=== PATIENT | born 1935 | race Caucasian/White ===

== ENCOUNTER 2021-08-19 09:32 | Day surgery (SDC) | payer MEDICARE, BC ==
[2021-08-19] MEDS ORDERED: Dexamethasone 4 MG/ML SDV IV ONE (09:33)
[2021-08-19] MEDS ORDERED: Midazolam 1 MG/ML 2 ML SDV IV ONE (09:33)
[2021-08-19] MEDS ORDERED: Sodium Chloride 0.9% 10 ML Syringe IV ONE (09:33)
[2021-08-19] MEDS ORDERED: Ondansetron 4 MG/2 ML SDV IVPUSH PRN (09:45)
[2021-08-19] MEDS ORDERED: Acetaminophen 325 MG Tab PO PRN (09:45)
[2021-08-19] MEDS ORDERED: Tropicamide 1% Ophth Soln 15 ML Bottle EYELF ONE (09:45)
[2021-08-19] MEDS ORDERED: Cataract Ophth Solution EYELF ONE (09:45)
[2021-08-19] MEDS ORDERED: Acetaminophen/Codeine 300-30 MG Tab PO PRN (09:45)
[2021-08-19] MEDS ORDERED: Timolol Maleate 0.5% Ophth Soln 5 ML Bottle EYELF ONE (09:45)
[2021-08-19] MEDS ORDERED: Phenylephrine 10% Ophth Soln 5 ML Bot EYELF ONE (09:45)
[2021-08-19] MEDS ORDERED: Proparacaine 0.5% Ophth Soln 15 ML Bottle EYELF ONE (09:45)
[2021-08-19] MEDS ORDERED: Tobramycin 0.3% Ophth Drops 5 ML Bottle EYELF SCH (09:45)
[2021-08-19] MEDS ORDERED: Moxifloxacin 0.5% Ophth Soln 3 ML Bottle EYELF ONE (09:45)
[2021-08-19] MEDS ORDERED: Povidone-Iodine 5% Sterile Ophth Soln 30 ML Bottle EYELF ONE ×2 (09:45→10:49)
[2021-08-19] MEDS ORDERED: Sodium Chloride 0.9% 10 ML Syringe FLUSH PRN (09:45)
[2021-08-19] MEDS ORDERED: Tetracaine HCl/PF 0.5% 4 ML Bottle EYELF ONE (10:47)
[2021-08-19] MEDS ORDERED: Apraclonidine 0.5% Ophth Soln 5 ML Bot EYELF ONE (10:50)
[2021-08-19] MEDS ORDERED: Diclofenac Sodium 0.1% Ophth Soln 5 ML Bottle EYELF ONE (10:51)
[2021-08-19] MEDS ORDERED: Dexamethasone/Neomycin/Polymyxin B Ophth Oint 3.5 GM Tube EYELF ONE (10:52)
[2021-08-19] MEDS ORDERED: Balanced Salt Solution Ophth Irrig 500 ML Bottle IOCULAR ONE (10:53)
[2021-08-19] MEDS ORDERED: Lidocaine 1% 30 ML SDV ONE (10:53)
[2021-08-19] MEDS ORDERED: Vancomycin 500 MG SDV EYELF ONE (10:54)
[2021-08-19] MEDS ORDERED: Chondroitin Sulfate/Hyaluronate Sodium Ophth Inj 0.5 ML Syringe IOCULAR ONE (10:55)
[2021-08-19] MEDS ORDERED: Dexamethasone 4 MG/ML SDV IOCULAR ONE (10:56)
== END 2021-08-19 11:50 | disposition home or self-care (01) ==
LOC: DL.SDS 09:32
PROVIDERS: ATTEND Ophthalmology
DX: H25.812 Combined forms of age-related cataract, left eye (principal); I10 Essential (primary) hypertension; E78.5 Hyperlipidemia, unspecified; I25.10 Atherosclerotic heart disease of native coronary artery without angina pectoris; F33.1 Major depressive disorder, recurrent, moderate; F39 Unspecified mood [affective] disorder; Z79.899 Other long term (current) drug therapy; Z98.890 Other specified postprocedural states; Z95.1 Presence of aortocoronary bypass graft; Z88.6 Allergy status to analgesic agent; Z88.7 Allergy status to serum and vaccine; Z79.82 Long term (current) use of aspirin; Z91.51 Personal history of suicidal behavior
CPT/HCPCS: 00142; 66984; A9270; J1100; J2250; J3370; J3490; V2632

== ENCOUNTER 2021-09-02 09:08 | Day surgery (SDC) | payer MEDICARE, BC ==
[~2021-09-02 09:08] MED LIST: Proparacaine 0.5% Ophth Soln 15 ML Bottle ONE
[2021-09-02] MEDS ORDERED: Midazolam 1 MG/ML 2 ML SDV IV ONE (09:09)
[2021-09-02] MEDS ORDERED: Sodium Chloride 0.9% 10 ML Syringe IV ONE (09:09)
[2021-09-02] MEDS ORDERED: Dexamethasone 4 MG/ML SDV IV ONE (09:09)
[2021-09-02] MEDS ORDERED: Acetaminophen 325 MG Tab PO PRN (09:45)
[2021-09-02] MEDS ORDERED: Acetaminophen/Codeine 300-30 MG Tab PO PRN (09:45)
[2021-09-02] MEDS ORDERED: Proparacaine 0.5% Ophth Soln 15 ML Bottle EYERT ONE (09:45)
[2021-09-02] MEDS ORDERED: Povidone-Iodine 5% Sterile Ophth Soln 30 ML Bottle EYERT ONE ×2 (09:45→10:41)
[2021-09-02] MEDS ORDERED: Phenylephrine 10% Ophth Soln 5 ML Bot EYERT PRN (09:45)
[2021-09-02] MEDS ORDERED: Moxifloxacin 0.5% Ophth Soln 3 ML Bottle EYERT ONE (09:45)
[2021-09-02] MEDS ORDERED: Timolol Maleate 0.5% Ophth Soln 5 ML Bottle EYERT ONE (09:45)
[2021-09-02] MEDS ORDERED: Cataract Ophth Solution EYERT ONE (09:45)
[2021-09-02] MEDS ORDERED: Ondansetron 4 MG/2 ML SDV IVPUSH PRN (09:45)
[2021-09-02] MEDS ORDERED: Tobramycin 0.3% Ophth Drops 5 ML Bottle EYELF ONE (09:45)
[2021-09-02] MEDS ORDERED: Tropicamide 1% Ophth Soln 15 ML Bottle EYERT ONE (09:45)
[2021-09-02] MEDS ORDERED: Tetracaine HCl/PF 0.5% 4 ML Bottle EYERT ONE (10:40)
[2021-09-02] MEDS ORDERED: Apraclonidine 0.5% Ophth Soln 5 ML Bot EYERT ONE (10:41)
[2021-09-02] MEDS ORDERED: Diclofenac Sodium 0.1% Ophth Soln 5 ML Bottle EYERT ONE (10:41)
[2021-09-02] MEDS ORDERED: Lidocaine 1% 5 ML VIAL ONE (10:42)
[2021-09-02] MEDS ORDERED: Dexamethasone/Neomycin/Polymyxin B Ophth Oint 3.5 GM Tube EYERT ONE (10:42)
[2021-09-02] MEDS ORDERED: Balanced Salt Solution Ophth Irrig 500 ML Bottle IOCULAR ONE (10:43)
[2021-09-02] MEDS ORDERED: Vancomycin 500 MG SDV EYERT ONE (10:44)
[2021-09-02] MEDS ORDERED: Chondroitin Sulfate/Hyaluronate Sodium Ophth Inj 0.75 ML Syringe EYERT ONE (10:44)
== END 2021-09-02 11:45 | disposition home or self-care (01) ==
LOC: DL.SDS 09:08
PROVIDERS: ATTEND Ophthalmology
DX: H25.811 Combined forms of age-related cataract, right eye (principal); I10 Essential (primary) hypertension; E78.5 Hyperlipidemia, unspecified; I25.10 Atherosclerotic heart disease of native coronary artery without angina pectoris; F33.1 Major depressive disorder, recurrent, moderate; F39 Unspecified mood [affective] disorder; E66.9 Obesity, unspecified; Z98.890 Other specified postprocedural states; Z88.8 Allergy status to other drugs, medicaments and biological substances; Z88.7 Allergy status to serum and vaccine; Z79.899 Other long term (current) drug therapy
CPT/HCPCS: 00142; 66982; A9270; J1100; J2250; J3370; J3490; V2632